=== PATIENT | male | born 2000 | race Caucasian/White ===

== ENCOUNTER 2018-01-01 14:59 | Emergency (ER) | payer BC ==
[2018-01-01 15:30] LABS: Urine Appearance Clear; Urine Blood Negative (Negative); Urine Color Yellow; Urine Ketones Negative (Negative); Urine Protein Negative (Negative); Urine Urobilinogen Negative (Negative)
--- NOTE | 2018-01-01 15:52 | RAD ---
HISTORY: testicular swelling - acute COMPARISONS: None TECHNIQUE: Multiple transverse and longitudinal ultrasound images were obtained of the scrotum, using grayscale, color Doppler, and spectral Doppler imaging. FINDINGS: RIGHT: RIGHT TESTICLE: The right testicle measures 4.6 x 2.1 x 2.9 cm. The right testicle is homogeneous in echotexture, without testicular parenchymal mass. Normal arterial and venous waveforms are identified within the right testicle on spectral Doppler imaging. RIGHT EPIDIDYMIS: The right epididymis measures 1.2 cm at the head. RIGHT SCROTUM: There is no hydrocele or varicocele. LEFT: LEFT TESTICLE: The left testicle measures 4.7 x 2.1 x 2.5 cm. The left testicle is homogeneous in echotexture, without testicular parenchymal mass. Normal arterial and venous waveforms are identified within the left testicle on spectral Doppler imaging. LEFT EPIDIDYMIS: The left epididymis measures 1.5 cm at the head. There is a 0.4 cm epididymal head cyst. LEFT SCROTUM: There is moderate left hydrocele. There is no varicocele. OTHER: None IMPRESSION: 1. NO TESTICULAR PARENCHYMAL MASS. 2. NO SONOGRAPHIC FEATURES OF TORSION. PLEASE NOTE THAT PARTIAL OR INTERMITTENT TORSION MAY BE SONOGRAPHICALLY NORMAL.. 3. LEFT-SIDED HYDROCELE
[2018-01-01 17:29] VITALS: BP 110/70
--- NOTE | 2018-01-01 17:32 | ED ---
GI/ HPI - HPI Summary HPI Summary: Patient is a 17-year-old male presenting to the ED with chief complaint of left- sided testicular swelling which is mild since this morning. He states he has been lifting weights more frequently and completed a regimen of squats yesterday. He is also endorsing some pain to the testicle. History of testicular torsion as a child. He denies any known STDs, but states there is a chance. However he denies any discharge, odor, burning or any other urinary symptoms. Denies any masses. - History of Current Complaint Chief Complaint: EDUrogenitalProblems Time Seen by Provider: 01/01/18 16:22 Stated Complaint: LT TESTICULAR PAIN Hx Obtained From: Patient Onset/Duration: Started Hours Ago Timing: Constant Severity: Moderate Current Severity: Mild Pain Intensity: 3 Location of Pain: Other - groin area Pain Characteristics: Cramping Associated Signs and Symptoms: Positive: Negative Aggravating Factor(s): Nothing Alleviating Factor(s): Nothing - Allergy/Home Medications Allergies/Adverse Reactions: Allergies Allergy/AdvReac Type Severity Reaction Status Date / Time No Known Allergies Allergy Verified 01/01/18 16:28 Home Medications: Home Medications NK [No Home Medications Reported] 01/01/18 [History Confirmed 01/01/18] PMH/Surg Hx/FS Hx/Imm Hx Previously Healthy: Yes - Immunization History Hx Pertussis Vaccination: No Immunizations Up to Date: Yes Infectious Disease History: No Infectious Disease History: Denies: Traveled Outside the [place] in Last 30 Days - Social History Occupation: Unemployed, Student Lives: Dormitory/Roommates Alcohol Use: Occasionally Hx Substance Use: Yes Substance Use Type: Reports: Marijuana Substance Use Comment - Amount & Last Used: 12/31/17 Hx Tobacco Use: No Smoking Status (MU): Never Smoked Tobacco Review of Systems Constitutional: Negative Negative: Fever, Chills, Fatigue, Skin Diaphoresis Negative: Palpitations, Chest Pain Negative: Shortness Of Breath, Cough Negative: Abdominal Pain, Vomiting, Diarrhea, Nausea Genitourinary: Negative Positive: no symptoms reported, see HPI, other - slight swelling to the L testicle and L groin pain Musculoskeletal: Negative Skin: Negative Psychological: Normal All Other Systems Reviewed And Are Negative: Yes Physical Exam Triage Information Reviewed: Yes Vital Signs On Initial Exam: Initial Vitals Temp Pulse Resp BP Pulse Ox 97.9 F 76 16 105/68 97 09/04/18 15:01 01/01/18 15:01 01/01/18 15:01 01/01/18 15:01 01/01/18 15:01 Vital Signs Reviewed: Yes Appearance: Positive: Well-Appearing, Well-Nourished Skin: Positive: Warm, Skin Color Reflects Adequate Perfusion Head/Face: Positive: Normal Head/Face Inspection Eyes: Positive: EOMI, GRZEGORZ, Conjunctiva Clear Neck: Positive: Supple, No Lymphadenopathy Respiratory/Lung Sounds: Positive: Clear to Auscultation, Breath Sounds Present Cardiovascular: Positive: RRR, Pulses are Symmetrical in both Upper and Lower Extremities Abdomen Description: Positive: Nontender Male Genital Exam: Positive: Normal Genitalia, Inguinal Tenderness - L. Negative: Epididymal Tenderness, Hernia Mass, High Riding Prostate, Scrotum Tenderness (R), Scrotum Tenderness (L), Testicular Tenderness (R), Testicular Tenderness (L), Urethral Discharge Musculoskeletal: Positive: Strength/ROM Intact Neurological: Positive: Sensory/Motor Intact, Alert, Oriented to Person Place, Time, Speech Normal Psychiatric: Positive: Normal, Affect/Mood Appropriate AVPU Assessment: Alert Diagnostics - Vital Signs Vital Signs Temp Pulse Resp BP Pulse Ox 01/01/18 15:01 97.9 F 76 16 105/68 97 - Laboratory Lab Results: Lab Results 01/01/18 Range/Units 15:07 Urine Color Yellow Urine Appearance Clear Urine pH 6.0 (5-9) Ur Specific [place] 1.030 (1.010-1.030) Urine Protein Negative (Negative) Urine Ketones Negative (Negative) Urine Blood Negative (Negative) Urine Nitrate Negative (Negative) Urine Bilirubin Negative (Negative) Urine Urobilinogen Negative (Negative) Ur Leukocyte Esterase Negative (Negative) Urine Glucose Negative (Negative) Lab Statement: Any lab studies that have been ordered have been reviewed, and results considered in the medical decision making process. GIGU Course/Dx - Course Course Of Treatment: Patient presents with left testicular pain x 2 days which radiates to the groin on the ipsilateral side. On physical exam the epidydimus and spermatic cord are without tenderness or masses. Positive bilateral cremaster reflex. No abnormal elevation of the L testicle or shortening of the spermatic cord. No scrotal erythema bilaterally. Positive Prehn's sign. No evidence of hydrocele or varicocele on examination. No palpable mass appreciated in the left testes. no drainage or discharge from the penis. US Performa shows a left sided hydrocele with no other findings. He is diagnosed with hydrocele. Patient is also requesting STD testing. - Diagnoses Provider Diagnoses: Hydrocele, left Discharge - Sign-Out/Discharge Documenting (check all that apply): Patient Departure - Discharge Plan Condition: Stable Disposition: HOME Patient Education Materials: Hydrocele (ED) Referrals: No Primary Care Phys,NOPCP [Primary Care Provider] - Dariusz Vargas MD [Medical Doctor] - Additional Instructions: Please follow up with urology if symptoms worsen or persist - Billing Disposition and Condition Condition: STABLE Disposition: Home
== END 2018-01-01 17:28 | disposition home or self-care (01) ==
LOC: ED 14:59
DX: N43.3 Hydrocele, unspecified (principal); N50.3 Cyst of epididymis
CPT/HCPCS: 76870; 81003; 99282